=== PATIENT | female | born 1990 | race Hispanic/Latino ===

== ENCOUNTER 2021-08-21 10:32 | Emergency (ER) | payer SELFPAY ==
[~2021-08-21] VITALS: Ht 160 cm; Wt 115.7 kg
[2021-08-21] MEDS ORDERED: SODIUM CHLORIDE 0.9% 1000ML 1,000 ML IV STA (10:44)
[2021-08-21 11:01] LABS: BASOPHILS % 0.2 % (0.0-1.0); EOSINOPHILS # (AUTO) 0.2 (0.0-0.4); EOSINOPHILS % 1.5 % (0.0-6.0); HEMATOCRIT 39.2 % (34.2-44.1); LYMPHOCYTES # (AUTO) 2.1 (1.0-3.2); LYMPHOCYTES % 21.8 % (18.0-39.1); MEAN CORPUSCULAR HEMOGLOBIN 29.5 pg (28-32); MEAN CORPUSCULAR HGB CONC 33.2 g/dL (31-35); MEAN CORPUSCULAR VOLUME 88.9 fL (81-99); MONOCYTES # (AUTO) 0.5 (0.2-0.8); MONOCYTES % 5.2 % (4.4-11.3); NEUTROPHILS % 71.1 % (38.7-80.0); PLATELET COUNT 367 x10e3/uL (140-360); RED BLOOD COUNT 4.41 x10e6/uL (3.6-5.1); RED CELL DISTRIBUTION WIDTH 12.6 % (11.7-14.4)
[2021-08-21 11:13] LABS: INR 1.05; PROTHROMBIN TIME 14.4 seconds (11.9-14.5)
[2021-08-21 11:25] LABS: ALBUMIN 3.4 g/dL (3.5-5.0); ALBUMIN/GLOBULIN RATIO 0.9 (0.8-2.0); ANION GAP 14.1 mmol/L (8-16); CALCIUM 8.9 mg/dL (8.4-10.2); CREATININE, SERUM 0.74 mg/dL (0.57-1.11); POTASSIUM 4.1 mmol/L (3.5-5.1)
[2021-08-21 11:33] LABS: AMPHETAMINES SCREEN,URINE NEGATIVE (NEGATIVE); BENZODIAZEPINES SCREEN,URINE NEGATIVE (NEGATIVE); PHENCYCLIDINE SCREEN,URINE NEGATIVE (NEGATIVE)
[2021-08-21 15:19] LABS: APPEARANCE,CSF CLEAR (CLEAR); COLOR,CSF COLORLESS (COLORLESS)
[2021-08-21 15:20] LABS: TUBE NUMBER 3; WHITE BLOOD CELL,CSF 0 cells/uL (0-5)
== END 2021-08-21 16:47 | disposition home or self-care (01) ==
LOC: ER 10:45
DX: G93.2 Benign intracranial hypertension (principal)
CPT/HCPCS: 36415; 62328; 70450; 74470; 80053; 80307; 81025; 85025; 85610; 85730; 87070; 87205; 89051; 99285; J7030

== ENCOUNTER 2022-01-20 17:51 | Emergency (ER) ==
[~2022-01-20] VITALS: Ht 160 cm; Wt 115.7 kg
== END 2022-01-20 18:30 | disposition home or self-care (01) ==
LOC: ER 18:15
DX: R55 Syncope and collapse (principal)
CPT/HCPCS: 99282

== ENCOUNTER 2022-11-14 15:15 | Emergency (ER) | payer OTHER ==
[~2022-11-14] VITALS: Ht 160 cm; Wt 115.7 kg
[2022-11-14] MEDS ORDERED: TETANUS/DIPHTHERIA TOX ADULT 0.5 ML SYR IM ONE (16:15)
[2022-11-14] MEDS ORDERED: KETOROLAC TROMETHAMINE 30 MG/ML VIAL IM ONE (16:30)
[2022-11-14] MEDS ORDERED: NAPROXEN250 MG PO (17:59)
[2022-11-14 18:30] VITALS: O2SAT 100
== END 2022-11-14 18:30 | disposition home or self-care (01) ==
LOC: ER 15:24
DX: M54.2 Cervicalgia (principal); S80.812A Abrasion, left lower leg, initial encounter; V47.5XXA Car driver injured in collision with fixed or stationary object in traffic accident, initial encounter; Y92.488 Other paved roadways as the place of occurrence of the external cause
CPT/HCPCS: 70450; 71046; 72125; 81025; 90714; 99284